=== PATIENT | male | born 1990 | race Caucasian/White ===

== ENCOUNTER 2019-11-24 06:56 | Emergency (ER) | payer MEDICAID, OTHER ==
[2019-11-24] MEDS ORDERED: BENZTROPINE MESYLATE 1 MG TABLET PO ONE (07:56)
[2019-11-24] MEDS ORDERED: CHLORPROMAZINE HCL 50 MG TABLET PO ONE (07:56)
[2019-11-24 09:10] LABS: APPEARANCE,URINE CLEAR; BILIRUBIN,URINE NEGATIVE (NEGATIVE); COLOR,URINE YELLOW; GLUCOSE, URINE NEGATIVE (NEGATIVE); KETONES,URINE TRACE mg/dL (NEGATIVE); LEUKOCYTE ESTERASE,URINE NEGATIVE (NEGATIVE); NITRITE,URINE NEGATIVE (NEGATIVE); PROTEIN,URINE 30 mg/dL (NEGATIVE); URINE SPECIFIC GRAVITY 1.026
[2019-11-24 09:19] LABS: ABSOLUTE LYMPHOCYTES (AUTO) 0.7 10^3/uL (0.5-4.7); ABSOLUTE MONOCYTES (AUTO) 0.5 10^3/uL (0.1-1.4); ABSOLUTE NEUT (AUTO) 5.5 10^3/uL (1.7-8.2); BASOPHILS % (AUTO) 0.6 % (0-2); EOSINOPHILS % (AUTO) 0.1 % (0-6); HEMATOCRIT 44.5 % (37.9-51.0); LYMPHOCYTES % (AUTO) 10.3 % (13-45); MEAN CORPUSCULAR HEMOGLOBIN 30.2 pg (27.0-33.4); MEAN CORPUSCULAR HGB CONC 33.8 g/dL (32.0-36.0); MEAN CORPUSCULAR VOLUME 90 fl (80-97); MONOCYTES % (AUTO) 7.7 % (3-13); PLATELET COUNT 146 10^3/uL (150-450); RED BLOOD COUNT 4.97 10^6/uL (4.35-5.55); RED CELL DISTRIBUTION WIDTH 14.5 % (11.5-14.0); SEGMENTED NEUTROPHILS % (AUTO) 81.3 % (42-78); TOTAL CELLS COUNTED % (AUTO) 100 %; WHITE BLOOD COUNT 6.8 10^3/uL (4.0-10.5)
[2019-11-24] MEDS ORDERED: DIPHENHYDRAMINE HCL 25 MG CAPSULE PO ONE ×2 (09:20→14:14)
[2019-11-24 09:23] LABS: ALBUMIN 4.6 g/dL (3.5-5.0); ALKALINE PHOSPHATASE 64 U/L (38-126); ANION GAP 12 (5-19); ASPARTATE AMINO TRANSFERASE 33 U/L (17-59); BILIRUBIN,DIRECT 0.3 mg/dL (0.0-0.4); BILIRUBIN,TOTAL 0.5 mg/dL (0.2-1.3); BLOOD UREA NITROGEN 12 mg/dL (7-20); CALCIUM 9.8 mg/dL (8.4-10.2); CARBON DIOXIDE 22 mmol/L (22-30); CHLORIDE 105 mmol/L (98-107); GLUCOSE 123 mg/dL (75-110); POTASSIUM 4.6 mmol/L (3.6-5.0); TOTAL PROTEIN 8.1 g/dL (6.3-8.2)
[2019-11-24 09:29] LABS: URINE AMPHETAMINES SCREEN NEGATIVE; URINE BARBITURATES SCREEN NEGATIVE; URINE BENZODIAZEPINES SCREEN NEGATIVE; URINE COCAINE SCREEN NEGATIVE; URINE MARIJUANA (THC) SCREEN NEGATIVE; URINE METHADONE SCREEN NEGATIVE; URINE PHENCYCLIDINE SCREEN NEGATIVE
[2019-11-24 09:40] LABS: ACETAMINOPHEN < 10 ug/mL (10-30); ALCOHOL < 10 mg/dL (NONE DETECTED); SALICYLATE < 1.0 mg/dL (2.0-20.0)
[2019-11-24] MEDS ORDERED: CHLORPROMAZINE HCL 25 MG TABLET PO ONE (14:13)
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
--- NOTE | 2019-11-24 19:39 | EKG REPORT ---
SEVERITY:- DEFECTIVE ECG - SINUS TACHYCARDIA INTERCNANGED V1 AND V2 LEADS.REPEAT EKG : Confirmed by: Mercedes Hatfield MD 24-Nov-2019 19:38:38
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
[2019-11-24] MEDS ORDERED: HYDROXYZINE HCL INJ 50 MG/1 ML VIAL IM ONE (21:01)
[2019-11-25] MEDS ORDERED: HYDROXYZINE HCL INJ 50 MG/1 ML VIAL IM ONE (00:54)
[2019-11-25] MEDS ORDERED: CHLORPROMAZINE HCL INJ 25 MG/1 ML AMPULE IM ONE (01:28)
[2019-11-25] MEDS ORDERED: HALOPERIDOL LACTATE INJ 5 MG/1 ML VIAL IM ONE (03:15)
[2019-11-25] MEDS ORDERED: DIPHENHYDRAMINE HCL 50 MG/ML VIAL IM ONE (03:16)
[2019-11-25] MEDS ORDERED: LORAZEPAM INJ 2 MG/1 ML VIAL IM ONE (03:16)
--- NOTE | 2019-11-25 15:36 | PSYCHOLOGICAL NOTE ---
Psych Note - Psych Note Date seen by psych provider: 11/25/19 Psych Note: Clinician notes a new consult was submitted for this patient and 24 hour petition for evaluation was put into the patient's chart. At this time, the patient will not be re-evaluated. Unfortunately, this petition is not notarized nor does it meet minimum legal threshold. This patient was just evaluated yesterday and cleared from acute psychiatric services. He has not left the facility since evaluation. This patient has both IDD and autism and has been experiencing behavioral events due to recent changes to family dynamics and routines. The patient's family has significant outpatient resources and supports that are not being used (please she mental health notes and previous evaluation). Clinician notes the ED environment is not appropriate for this patient (due to the high stimulation) and it is to be expected for the patient to have continued difficulties with random outbursts.
[2019-11-26] MEDS ORDERED: DIPHENHYDRAMINE HCL 50 MG/ML VIAL IM ONE (00:48)
[2019-11-26] MEDS ORDERED: ZOLPIDEM TARTRATE 5 MG TABLET PO ONE (04:43)
[2019-11-26] MEDS: PANTOPRAZOLE SODIUM 40 MG TABLET.DR PO SCH (07:22)
[2019-11-26] MEDS: TOPIRAMATE 100 MG TABLET PO SCH ×3 (10:30→18:13)
[2019-11-26] MEDS: CARBAMAZEPINE 100 MG TAB.SR.12H PO SCH ×2 (10:31→18:14)
[2019-11-26] MEDS: BENZTROPINE MESYLATE 1 MG TABLET PO SCH ×3 (10:32→18:13)
[2019-11-26] MEDS: DIVALPROEX SODIUM 500 MG TAB.SR.24H PO SCH ×2 (10:32→18:13)
[2019-11-26] MEDS: RISPERIDONE 1 MG TABLET PO SCH ×3 (10:32→18:13)
[2019-11-26] MEDS: HYDROXYZINE PAMOATE 50 MG CAPSULE PO SCH ×2 (10:33→18:13)
[2019-11-26] MEDS: CHLORPROMAZINE HCL 50 MG TABLET PO SCH ×3 (10:33→18:13)
[2019-11-26] MEDS: ZOLPIDEM TARTRATE 5 MG TABLET PO SCH (21:07)
[2019-11-26] MEDS: MONTELUKAST SODIUM 10 MG TABLET PO SCH (21:08)
[2019-11-27] MEDS: PANTOPRAZOLE SODIUM 40 MG TABLET.DR PO SCH (06:48)
[2019-11-27] MEDS: CARBAMAZEPINE 100 MG TAB.SR.12H PO SCH ×2 (10:38→18:14)
[2019-11-27] MEDS: RISPERIDONE 1 MG TABLET PO SCH ×3 (10:38→18:12)
[2019-11-27] MEDS: CHLORPROMAZINE HCL 50 MG TABLET PO SCH ×3 (10:38→18:13)
[2019-11-27] MEDS: BENZTROPINE MESYLATE 1 MG TABLET PO SCH ×3 (10:39→18:11)
[2019-11-27] MEDS: DIVALPROEX SODIUM 500 MG TAB.SR.24H PO SCH ×2 (10:39→18:13)
[2019-11-27] MEDS: HYDROXYZINE PAMOATE 50 MG CAPSULE PO SCH ×2 (10:39→18:13)
[2019-11-27] MEDS: TOPIRAMATE 100 MG TABLET PO SCH ×3 (10:40→18:14)
[2019-11-27] MEDS: ZOLPIDEM TARTRATE 5 MG TABLET PO SCH (21:44)
[2019-11-27] MEDS: MONTELUKAST SODIUM 10 MG TABLET PO SCH (21:45)
[2019-11-28] MEDS: PANTOPRAZOLE SODIUM 40 MG TABLET.DR PO SCH (06:30)
[2019-11-28] MEDS: BENZTROPINE MESYLATE 1 MG TABLET PO SCH (10:45)
[2019-11-28] MEDS: HYDROXYZINE PAMOATE 50 MG CAPSULE PO SCH (10:45)
[2019-11-28] MEDS: CHLORPROMAZINE HCL 50 MG TABLET PO SCH (10:46)
[2019-11-28] MEDS: DIVALPROEX SODIUM 500 MG TAB.SR.24H PO SCH (10:46)
[2019-11-28] MEDS: RISPERIDONE 1 MG TABLET PO SCH (10:46)
[2019-11-28] MEDS: CARBAMAZEPINE 100 MG TAB.SR.12H PO SCH (11:08)
[2019-11-28] MEDS: TOPIRAMATE 100 MG TABLET PO SCH (11:08)
--- NOTE | 2019-11-28 11:59 | ER Document Report ---
Doctor's Note Notes: 11/28/19 11:59 Patient is calm and cooperative. He wants to go home per grandmother and grandfather willing to take him home. Patient denies any concerns about going home at this time. Patient denies any pain. Vital signs are stable. Patient will be discharged home in the care of his grandparents with psychiatry/behav ral health medication recommendations.
[2019-11-28 13:05] VITALS: BP 143/96
== END 2019-11-28 13:06 | disposition home or self-care (01) ==
LOC: ER 06:56
DX: F84.0 Autistic disorder (principal); F91.9 Conduct disorder, unspecified; R45.850 Homicidal ideations; R41.82 Altered mental status, unspecified
CPT/HCPCS: 93005; 36415; 80307 ×4; 80156; 85025; 80053; 81001; 80164; 93010; J3490 ×11; 96372; 99285

== ENCOUNTER → 2020-08-16 | Outpatient (CLI) | payer OTHER ==
[2020-08-16 15:48] LABS: ABSOLUTE LYMPHOCYTES (AUTO) 1.3 10^3/uL (0.5-4.7); ABSOLUTE MONOCYTES (AUTO) 0.4 10^3/uL (0.1-1.4); ABSOLUTE NEUT (AUTO) 2.1 10^3/uL (1.7-8.2); BASOPHILS % (AUTO) 0.1 % (0-2); EOSINOPHILS % (AUTO) 0.8 % (0-6); HEMATOCRIT 45.6 % (37.9-51.0); HEMOGLOBIN 15.5 g/dL (13.5-17.0); LYMPHOCYTES % (AUTO) 34.8 % (13-45); MEAN CORPUSCULAR HEMOGLOBIN 30.1 pg (27.0-33.4); MEAN CORPUSCULAR HGB CONC 33.9 g/dL (32.0-36.0); MEAN CORPUSCULAR VOLUME 89 fl (80-97); MONOCYTES % (AUTO) 10.4 % (3-13); PLATELET COUNT 146 10^3/uL (150-450); RED BLOOD COUNT 5.14 10^6/uL (4.35-5.55); RED CELL DISTRIBUTION WIDTH 12.8 % (11.5-14.0); SEGMENTED NEUTROPHILS % (AUTO) 53.9 % (42-78); TOTAL CELLS COUNTED % (AUTO) 100 %; WHITE BLOOD COUNT 3.9 10^3/uL (4.0-10.5)
[2020-08-16 16:04] LABS: ALBUMIN 4.4 g/dL (3.5-5.0); ALKALINE PHOSPHATASE 93 U/L (38-126); ANION GAP 12 (5-19); ASPARTATE AMINO TRANSFERASE 29 U/L (17-59); BILIRUBIN,DIRECT 0.1 mg/dL (0.0-0.4); BILIRUBIN,TOTAL 0.4 mg/dL (0.2-1.3); BLOOD UREA NITROGEN 10 mg/dL (7-20); CALCIUM 9.5 mg/dL (8.4-10.2); CARBON DIOXIDE 21 mmol/L (22-30); CHLORIDE 98 mmol/L (98-107); CHOLESTEROL 234.44 mg/dL (0-200); GLUCOSE 88 mg/dL (75-110); POTASSIUM 4.8 mmol/L (3.6-5.0); TOTAL PROTEIN 7.5 g/dL (6.3-8.2); TRIGLYCERIDES 112 mg/dL (<150)
[2020-08-16 16:16] LABS: DIRECT LDL 116 mg/dL (<100)
[2020-08-16 16:22] LABS: FREE T4 (FREE THYROXINE) 0.67 ng/dL (0.78-2.19)
== END ==
LOC: OD 14:10
PROVIDERS: ATTEND Nurse Practitioner Psychiatric/Mental Health
DX: F31.9 Bipolar disorder, unspecified (principal); Z79.899 Other long term (current) drug therapy
CPT/HCPCS: 36415; 80053; 80061; 80156; 80164; 84439; 84443; 85025